=== PATIENT | male | born 1995 | race Caucasian/White ===

== ENCOUNTER 2022-01-05 10:03 | Emergency (ER) | payer OTHER, SELFPAY ==
[2022-01-05 10:30] VITALS: BP 153/106; PULSE 85; RESP 16; TEMP 36.7; O2SAT 98; BMI 39.5
[2022-01-05 10:35] VITALS: BP 133/111; PULSE 62; RESP 20; O2SAT 97
--- NOTE | 2022-01-05 10:50 | W.ED.HEATRA ---
HPI - Head Injury General: Chief complaint: Head Injury Stated complaint: Head injury, fell last Time Seen by Provider: 01/05/22 10:33 History of Present Illness: 26-year-old male presents emergency room with complaint of headache and dizziness. 1 week ago he fell while he was at work he was going down a flight of stairs and slipped and hit his head he said a constant headache dizzy with nausea since then he is never had any loss of consciousness. His blood pressure has been elevated he previously was taking antihypertensives but he has stopped taking them now about 6 months ago. Is not had any vomiting. No other injuries no chest pain no difficulty with vision or speech or swallowing. MD Complaint: head injury Onset (ago): week(s) (1) Mechanism of Injury: fall Place: work Loss of Consciousness: no Location of injury: occipital Severity: mild Quality: dull Other Injuries: none Associated symptoms: Deny nausea or vomiting Review of Systems Const: Denies: fever(s), chills, body aches, change in appetite, fatigue or malaise ENMT: Denies: throat pain, ear or mastoid pain, nasal discharge or nasal congestion Card: Denies: chest pain, edema, dyspnea on exertion or orthopnea Resp: Denies: dyspnea, productive cough or non-productive cough GI: Denies: abdominal pain, nausea, vomiting, hematemesis, coffee ground emesis, diarrhea, constipation, bloating, hematochezia or melena : Denies: flank pain, dysuria, urinary frequency or urinary urgency Skin/Breast: Denies: rash or pruritus [facility] ED PFSH: Medical History (Updated 01/09/22 @ 16:48 by Jovan Carroll DO) No significant past medical history Surgical History (Updated 01/09/22 @ 16:48 by Jovan Carroll DO) No significant past surgical history Physical Exam Const: COMMON NORMALS: no acute distress GENERAL APPEARANCE: cooperative and comfortable ORIENTATION/CONSCIOUSNESS: Yes awake, Yes oriented to person, Yes oriented to place and Yes oriented to time HENMT: COMMON NORMALS: normocephalic, atraumatic, hearing grossly normal bilaterally, external ears normal, EAC's normal, TM's normal bilaterally, Normal nasal mucous membranes and turbinates present, moist oral mucous membranes and oropharynx normal HEAD & SCALP: normocephalic and atraumatic NOSE: Normal nasal mucous membranes and turbinates present EXTERNAL EAR: Yes external ears normal EXTERNAL AUDITORY CANAL: EAC's normal TYMPANIC MEMBRANE: TM's normal bilaterally Eye: COMMON NORMALS: Equal, round and reactive pupils present, EOMs intact bilaterally, conjunctivae normal and no scleral icterus CONJUNCTIVA: Yes conjunctivae normal PUPIL: Yes Equal, round and reactive pupils present Neck/C-Spine: COMMON NORMALS: full ROM, no lymphadenopathy, supple and no JVD Lymph: LYMPHATIC: no lymphadenopathy noted and no lymphedema noted Resp: COMMON NORMALS: normal respiratory effort, No retractions, No use of accessory muscles and clear to auscultation bilaterally AUSCULTATION: clear to auscultation bilaterally Cardio: COMMON NORMALS: no JVD, regular rate, regular rhythm and No murmurs present (Cardio) RATE: regular rate RHYTHM: regular rhythm GI: COMMON NORMALS: Soft to palpation and No hepatosplenomegaly present AUSCULTATION: Yes normoactive bowel sounds PALPATION: Yes Soft to palpation, No Tenderness to palpation present (GI), No Guarding due to palpation present (GI) and Yes No hepatosplenomegaly present Extremity: COMMON NORMALS: normal to inspection, capillary refill normal, no clubbing, cyanosis or edema, no calf tenderness and no pedal edema Neuro: SENSORIUM/ORIENTATION: Yes oriented to person, Yes oriented to place and Yes oriented to time Skin: COMMON NORMALS: no rashes or lesions noted GENERAL SKIN EXAM: no rashes or lesions noted Course Vital Signs: Vital signs: Vital Signs Temperature 98.1 F 01/05/22 10:30 Pulse Rate 63 01/05/22 11:37 Respiratory Rate 20 H 01/05/22 10:35 Blood Pressure 134/82 01/05/22 11:37 Pulse Oximetry 98 01/05/22 11:37 MDM - Head Injury Medcial Decision Making CT head negative. No acute findings on exam or imaging discharged home postconcussive headache syndrome follow-up as needed Medical Records I reviewed the patient's medical records. Lab Data I reviewed the patient's lab results. Radiology Impressions Head CT 01/05/22 10:55 IMPRESSION: Negative head CT. Discharge Plan Discharge Patient Disposition: Home Clinical Impression: Concussion without loss of consciousness, Postconcussion syndrome Condition: Stable Prescriptions: No Action Motion Sickness 50 mg Tablet 50 mg PO Q8H 0RF paroxetine HCl 20 mg tablet 20 mg PO DAILY 0RF Advil 200 mg Tablet 200 mg PO Q6H PRN (Reason: Pain) 0RF omeprazole 20 mg Tablet,Delayed Release (Dr/Ec) 20 mg PO DAILY 0RF Discharge Orders: Discharge ED (Routine); Ordered 01/05/22 Ordered By: Jovan Carroll Referrals: Jackie Hill, TECHNICIAN [Primary Care Provider] - Discharge Diet: Usual diet Discharge Activity: Limit activity as instructed Patient Instructions: Opioid Safety Activity Restrictions/Additional Instructions: Avoid use of computer screens cell phones tablets etc. Avoid watching television or reading. When she is gone 24 hours no headaches you may resume those activities. Avoid heavy lifting or any other activities that precipitates headache follow-up with your primary care doctor within the week. Coding Level of Care Code ED [employer] Exam Comprehensive
--- NOTE | 2022-01-05 10:55 | CT_ITS ---
WS: [id number] CT HEAD NONCONTRAST HISTORY: fall TECHNIQUE: Contiguous axial imaging performed through the brain in 2.5 mm imaging. Bone and soft tiss ue windows. Sagittal and coronal reformats reviewed. All CT scans at [facility] use at least one of these dose optimization techniques: automated exposure control; mA and/or kV adjustment per pa tient size (includes targeted exams where dose is matched to clinical indication); or iterative recon struction. DLP: 872.86 mGy.cm COMPARISON: None available. No acute intracranial hemorrhage, midline shift or mass effect. No atrophy or prior infarcts or herniation. Ventricles: Normal size with no hydrocephalus. Paranasal sinuses: As visualized are clear. Mastoid air cells: Well pneumatized. Calvarium and scalp: Skull is intact with no soft tissue edema or swelling. CT/CT head wo con* [id number] IMPRESSION: Negative head CT.
[2022-01-05 11:37] VITALS: BP 134/82; PULSE 63; O2SAT 98
== END 2022-01-05 11:37 | disposition home or self-care (01) ==
PROVIDERS: Emergency Provider Family Medicine; PCP Nurse Practitioner Family
DX: S06.0X0A Concussion without loss of consciousness, initial encounter (principal); F07.81 Postconcussional syndrome; W10.8XXA Fall (on) (from) other stairs and steps, initial encounter
CPT/HCPCS: 70450; 99281